=== PATIENT | male | born 1950 | race Caucasian/White ===

== ENCOUNTER → 2016-09-01 | Outpatient (CLI) | payer OTHER ==
[~2016-09-01] MED LIST: ATOR-24 PO; ATOR80TA PO; CLC100X PO; DIPH1TAB87 PO; DIPH25CA5 PO; DLCS PR; DVN80 PO; FLTE PR; HYDR1TAB2 PO; MAGNSUS5 PO; MLXC PO; MULT-506 PO; MULTTAB58 PO; OPTIRAY 320 IV PRN; OPTOPS OP; OPTOPS OPB; PANT1TAB48 PO; ZNT/150 PO; ZNTT/150 PO
--- NOTE | 2016-09-01 16:13 | DIAGNOSTIC IMAGING REPORT ---
CHEST CT WITH CONTRAST CT DOSE: 275.67 mGycm HISTORY: Mass LUNG MASS TECHNIQUE: Multiaxial CT images of the chest were performed following the intravenous administration of contrast. COMPARISON: None. FINDINGS: The pulmonary apices are clear. Triangular masslike process of the right upper lobe measuring 5 x 2.5 cm. Small central 1 cm focus of necrosis. Small parenchymal infiltrative process immediately adjacent to the posterior margin right major fissure transaxial image 37. Fibrotic stranding to the right hilum. Diagnostic considerations include knees neoplasm, pulmonary infarct, versus consolidative parenchymal infiltrative process. Lung bases are considered clear. Prior cholecystectomy. Moderate degenerative changes of the osseous structures throughout. No major mediastinal or hilar adenopathy. IMPRESSION: 1. Triangular shaped pleural-based mass right upper lobe measuring 5 x 2.5 cm. 2. 1 cm central necrotic component. 3. Small adjacent additional density medially posterior to this structure as well as the right major fissure measuring 1.5 cm. 4. Diagnostic considerations include neoplasm, pulmonary infarct, versus consolidative infiltrative process.. 5. Bronchoscopy is suggested as follow-up. Electronically signed by: Berry Gray M.D. 09/01/2016 4:11 PM Dictated Date/Time: 09/01/2016 4:05 PM
== END | disposition home or self-care (01) ==
LOC: C.CTS 15:35
PROVIDERS: ATTEND Family Medicine
DX: R91.8 Other nonspecific abnormal finding of lung field (principal)

== ENCOUNTER → 2016-09-22 | Outpatient (CLI) | payer OTHER ==
[~2016-09-22] MED LIST changes: -OPTIRAY 320 IV PRN
--- NOTE | 2016-09-22 13:33 | DIAGNOSTIC IMAGING REPORT ---
PET/CT HISTORY: Nodule PULMONARY NODULE TECHNIQUE: PET/CT was performed from the base of the skull through the pelvis following the intravenous administration of 15.2 mCi of [id number]. Non-contrast CT imaging was performed over the same range without breath-hold for attenuation correction of PET images and anatomic correlation, but not for primary interpretation as it is not of standard diagnostic quality. CT DOSE: COMPARISON: CT chest dated 09/01/2016 FINDINGS: HEAD AND NECK: There is no FDG-avid disease or significant lymphadenopathy in the imaged portions of the head and the neck. CHEST: No change in the appearance of the triangular opacity of the right midlung. No significant/minimal increase in FDG activity activity. Trace/slight slight interstitial prominence in both lower lungs. ABDOMEN/PELVIS: Below the diaphragm, tracer is distributed physiologically in the gastrointestinal and genitourinary tracts. There is no significant lymphadenopathy and no FDG-avid disease. MUSCULOSKELETAL: There is no FDG-avid or destructive bone lesion. IMPRESSION: 1. The triangular density of the peripheral right midlung shows only a subtle increase in metabolic activity. 2. Although neoplasm is not excluded, this diminishes that possibility. Bronchoscopy or continued close CT follow-up is suggested. 3. Remainder the study is negative. Electronically signed by: Berry Gray M.D. 09/22/2016 1:31 PM Dictated Date/Time: 09/22/2016 1:26 PM
== END | disposition home or self-care (01) ==
LOC: C.PET 09:49
PROVIDERS: ATTEND Physician Assistant
DX: R13.10 Dysphagia, unspecified (principal); R91.8 Other nonspecific abnormal finding of lung field; R91.1 Solitary pulmonary nodule

== ENCOUNTER → 2016-09-30 | Day surgery (SDC) | payer OTHER ==
[2016-09-30] VITALS (14 sets, daily range): BP systolic 98–118; BP diastolic 60–81; PULSE 65–78; TEMP 36.3–36.5; O2SAT 96–100; Ht 177.8 cm; Wt 70.5 kg
[~2016-09-30] VITALS: Ht 177.8 cm; Wt 70.5 kg
[~2016-09-30] MED LIST changes: +FENTANYL CITRATE INJ 50 MCG/1 ML 2 ML VIAL IV ONE; +LIDOCAINE 4% INH SOLN 4 ML BTL ONE; +LIDOCAINE HCL 2% LOCAL 50ML VIAL INFIL ONE; +MIDAZOLAM HCL 5 MG/ML 1 ML VIAL IV ONE; +NURSING VERBAL MED ORDER ONE; +SODIUM CHLORIDE 0.9% 1000ML 1,000 ML IV SCH
--- NOTE | 2016-09-30 10:01 | History & Physical Bridge Note ---
H&P Re-Evaluation Bridge Note: I have examined the patient, reviewed the History & Physical and in the interval since the performance of the History & Physical I have noted the following changes of clinical significance: No changes noted
--- NOTE | 2016-09-30 10:02 | Procedure Note ---
Pre-Mod Sedation Assessment General Date of Moderate Sedation: September 30, 2016. Vital Signs: Vital Signs Past 12 Hours Date Time Temp Pulse Resp B/P Pulse Ox O2 Delivery O2 Flow Rate FiO2 09/30/16 09:20 36.5 78 20 113/66 100 Room Air Review Cardiovascular: regular rate, rhythm, no edema, no gallop, no JVD, no murmur, normal peripheral pulses Abdomen: normal bowel sounds, non tender, soft, no organomegaly, no pulsatile mass, normal rectal exam, occult blood negative Lungs: lungs clear, no respiratory distress, no accessory muscle use, + pertinent finding (decreased BS bilaterally ) Pre-Sedation Airway Assessment Oral Cavity: WNL Able to Visualize Vocal Cords: Yes Short Thick Neck: No Hx of Sleep Apnea: No Smoking Status: Former Smoker Mallampati Classification: Class I ASA Classification: Class III Procedure Planning Contraindications-for Mod Sed: None Yes Notes The planned sedation has been discussed with the patient and consent obtained. I have identified the patient, determined the appropriateness of sedation and have assessed the patient immediately prior to the procedure. All medicine(s) and interventions are by my order.
--- NOTE | 2016-09-30 10:52 | Discharge Instructions ---
Discharge Instructions Date of Service September 30, 2016. Admission Reason for Admission: Lung Mass vs. infiltrate Discharge Discharge Diagnosis / Problem: Lung mass vs. inflitrate Discharge Goals Goal(s): Improve function, Diagnostic testing Activity Recommendations Activity Limitations: resume your previous activity . Instructions / Follow-Up Instructions / Follow-Up Provider Sher Bradford in the [place] [facility] Current Hospital Diet Patient's current hospital diet: Discharge Diet Recommended Diet: Regular Diet Procedures Procedures Performed: Bronchoscopy with bronchial lavage of the right middle lobe Pending Studies Studies pending at discharge: no Medical Emergencies . Who to Call and When: Medical Emergencies: If at any time you feel your situation is an emergency, please call 911 immediately. . Non-Emergent Contact Non-Emergency issues call your: Director Operating Room Call Non-Emergent contact if: temperature is above 101.5 . . "Provider Documentation" section prepared by Luis Manuel Aaron. . VTE Core Measure Inpt VTE Proph given/why not?: Treatment not indicated
--- NOTE | 2016-09-30 10:53 | Procedure Note ---
Post-Moderate Sedation Plan General Date of Moderate Sedation September 30, 2016. Vital Signs: Vital Signs Past 12 Hours Date Time Temp Pulse Resp B/P Pulse Ox O2 Delivery O2 Flow Rate FiO2 09/30/16 10:40 74 20 111/68 98 Mask 8.0 09/30/16 10:35 71 18 104/75 98 Mask 8.0 09/30/16 10:30 73 16 113/73 100 Mask 8.0 09/30/16 10:25 75 18 113/79 100 Mask 8.0 09/30/16 10:20 74 20 117/73 100 Mask 8.0 09/30/16 10:15 69 18 118/81 100 Mask 8.0 09/30/16 10:10 69 18 117/78 100 Mask 8.0 09/30/16 09:20 36.5 78 20 113/66 100 Room Air Review - Discharge Plan Post Moderate Sedation Plan: On clinical assessment, the patient appears to have tolerated the conscious sedation without complications. Patient is recovering as anticipated. Patient will continue to be monitored by nursing and may be discharged when conscious sedation discharge criteria are met.
--- NOTE | 2016-09-30 10:55 | Bronchoscopy Procedure Note ---
Bronchoscopy Procedure Note Procedure: Bronchoscopy, conscious sedation, Bronchial Lavage of the RML Consent: Obtained through the patient placed into the chart Pre-procedural diagnosis: Lung mass vs. infiltrate Post-procedural diagnosis: Lung mass vs. infiltrate Start time: 1018 End time: 1031 Total time 13 mins: Analgesia: 2% liquid lidocaine: Via nebulizer 4% gel lidocaine: Via right naris 2% liquid lidocaine: Via bronchoscopy Sedation: Versed IV: 2 mg Fentanyl IV: 50 g Procedure: The [employer] video bronchoscope was used for this procedure and passed down through the right naris Right naris/posterior naris/posterior oropharynx: Anatomically within normal limits Glottis: Anatomically within normal limits Vocal cords: Proper abduction and abduction, anatomically within normal limits Subglottis/trachea/Avis: Anatomically within normal limits Right bronchial tree: Right mainstem bronchus: Anatomically within normal limits Right upper lobe: Anatomically within normal limits Bronchus intermedius: Anatomically within normal limits Right middle lobe: Anatomically within normal limits Right lower lobe: Anatomically within normal limits Findings: No significant findings noted Left bronchial tree: Left mainstem bronchus: Anatomically within normal limits Left upper lobe: Anatomically within normal limits Lingula: Anatomically within normal limits Left lower lobe: Anatomically within normal limits Findings: No significant findings noted Bronchial alveolar lavage: 100cc RML with return of 70cc EBL: None Complications: None Follow-up: MAURA Bradford in the [facility]
== END | disposition home or self-care (01) ==
LOC: C.ACU 07:38
PROVIDERS: ATTEND Internal Medicine Critical Care Medicine
DX: R91.1 Solitary pulmonary nodule (principal); K21.9 Gastro-esophageal reflux disease without esophagitis; H54.0 Blindness, both eyes; E78.5 Hyperlipidemia, unspecified; R13.10 Dysphagia, unspecified; G82.20 Paraplegia, unspecified; I10 Essential (primary) hypertension; Z82.49 Family history of ischemic heart disease and other diseases of the circulatory system; Z83.3 Family history of diabetes mellitus; Z80.8 Family history of malignant neoplasm of other organs or systems; Z87.891 Personal history of nicotine dependence; Z79.82 Long term (current) use of aspirin; Z79.899 Other long term (current) drug therapy